=== PATIENT | male | born 1965 | race Caucasian/White ===

== ENCOUNTER 2016-12-27 06:22 | Emergency (ER) | payer MEDICAID ==
[~2016-12-27] VITALS: Ht 180.3 cm; Wt 81.5 kg
[~2016-12-27 06:22] MED LIST: LISI-661 PO; SIMV-261 PO
[2016-12-27] MEDS ORDERED: HYDR25TA PO (06:26)
[2016-12-27] MEDS ORDERED: IBUPROFEN 600 MG TABLET PO ONE (07:00)
[2016-12-27 07:54] VITALS: BP 128/89
== END 2016-12-27 07:55 | disposition home or self-care (01) ==
LOC: EMS 06:23
DX: M54.5 Low back pain (principal); E78.00 Pure hypercholesterolemia, unspecified; I10 Essential (primary) hypertension
CPT/HCPCS: 72100; 99284